=== PATIENT | female | born 2000 | race Caucasian/White ===

== ENCOUNTER 2022-01-05 12:47 | Emergency (ER) | payer BC, SELFPAY ==
--- OUTSIDE RECORDS SUMMARY | 2022-01-05 12:51 | XMS REPORT | Continuity of Care Document ---
:2000 Author Organization [facility] t Address [address] [place], [place] [address]solis Mack [address] [place] [id number] Care Team Providers Name Role Phone PCP, PATIENT DOES NOT HAVE A Primary Care Physician Unavaila ANNIE Martinez Attending Clinician Unavailable Only, Ang Db Test Attending Clinician Unavailable Mavee Houston Attending Clinician MAEVE NAJERA Attending Clinician Unavailable Akinpelu LIFT SUPERVISORVirginie Attending Clinician [phone] ALEX SERRA Attending Clinician Unavailable Alex Moore Attending Clinician [phone] Michelle Espinosa Attending Clinician JACKELINE PINK Attending Clinician Unavailable ZIA WARE Attending Clinician Unavailable MICHELLE GUARDADO Attending Clinician Unavailable Lai Jackson Attending Clinician Rola Sena Attending Clinician LAI CASILLAS Attending Clinician Unavailable JUAN C WINKLER Attending Clinician Unavailable 2, [facility] Attending Clinician Unavailable Annie Birmingham PA-C Attending Clinician ELISHA CRESPO Attending Clinician Unavailable Payers Payer Name Policy Type Policy Number Effective Date Expiration Date S ource Problems Condition Condition Condition Status Onset Resolution Last Treating Co mments Source Name Details Category Date Date Treatment Clinician Date No known No known Disease Unive rs active active ity of problems problems [facility] Allergies, Adverse Reactions, Alerts Allergy Allergy Status Severity Reaction(s) Onset Inactive Treating Comm ents Source Name Type Date Date Clinician NO KNOWN Drug Active Univers ALLERGIE Class [facility] [place] [facility] Social History Social Habit Start Date Stop Date Quantity Comments Source History SDOH University o f Alcohol Frequency [place] [facility] History SDOH University o f Alcohol Std [place] [facility] Drinks Branch History SDOH University o f Alcohol Binge [place] [facility] Exposure [facility] 2021-11-03 2021-11-13 [facility] (event) Branch Tobacco use and 2021-02-22 2021-02-22 Smokeless tobacco Un iversity of exposure 00:00:00 00:00:00 non-user [facility] Alcohol intake 2021-02-22 2021-02-22 Current drinker Unive rsity of 00:00:00 00:00:00 of alcohol [facility] (finding) [place] Alcohol Comment 2021-02-22 2021-02-22 3-5 weekly Universit y of 00:00:00 00:00:00 [facility] Sex Ass[birth year] At [birth year] Universit y of 00:00:00 00:00:00 [facility] Smoking Status Start Date Stop Date Source Never smoked tobacco [facility] Medications Ordered Filled Start Stop Current Ordering Indication Dosage Frequency Signature Comments Components Source Medication Medication Date Date Medication? Clinician (SIG) Name Name amoxicillin 2020-05- No [id number] 1{tbl} Take 1 Univers -clavulanat -02 13-21 tablet by it y of e 00:00: 05:59 mouth 2 [place] (AUGMENTIN) 00 :00 (two) Medical 875-125 mg times Branch per tablet daily for 10 days. amoxicillin 2020-05- No [id number] 1{tbl} Take 1 Univers -clavulanat -10 11-21 tablet by it y of e 00:00: 05:59 mouth 2 [place] (AUGMENTIN) 00 :00 (two) Medical 875-125 mg times Branch per tablet daily for 10 days. drospirenon 2020-05 Yes [id number] 1{tbl} Take 1 Univers e-ethinyl 0-20 tablet by ity o f estradioL 00:00: mouth [place] 3-0.03 mg 00 daily. Medical per tablet Branch drospirenon 2020-05 Yes [id number] 1{tbl} Take 1 Univers e-ethinyl 0-20 tablet by ity o f estradioL 00:00: mouth [place] 3-0.03 mg 00 daily. Medical per tablet Branch drospirenon 2020-05 Yes [id number] 1{tbl} Take 1 Univers e-ethinyl 0-20 tablet by ity o f estradioL 00:00: mouth [place] 3-0.03 mg 00 daily. Medical per tablet Branch drospirenon 2020-05 Yes [id number] 1{tbl} Take 1 Univers e-ethinyl 0-20 tablet by ity o f estradioL 00:00: mouth [place] 3-0.03 mg 00 daily. Medical per tablet Branch drospirenon 2020-05 Yes [id number] 1{tbl} Take 1 Univers e-ethinyl 0-20 tablet by ity o f estradioL 00:00: mouth [place] 3-0.03 mg 00 daily. Medical per tablet Branch drospirenon 2020-05 Yes [id number] 1{tbl} Take 1 Univers e-ethinyl 0-20 tablet by ity o f estradioL 00:00: mouth [place] 3-0.03 mg 00 daily. Medical per tablet Branch drospirenon 2020-05 Yes [id number] 1{tbl} Take 1 Univers e-ethinyl 0-20 tablet by ity o f estradioL 00:00: mouth [place] 3-0.03 mg 00 daily. Medical per tablet Branch drospirenon 2020-05 Yes [id number] 1{tbl} Take 1 Univers e-ethinyl 0-20 tablet by ity o f estradioL 00:00: mouth [place] 3-0.03 mg 00 daily. Medical per tablet Branch drospirenon 2020-05 Yes [id number] 1{tbl} Take 1 Univers e-ethinyl 0-20 tablet by ity o f estradioL 00:00: mouth [place] 3-0.03 mg 00 daily. Medical per tablet Branch drospirenon 1{tbl} Take 1 U nivers e-ethinyl 8-10 10-20 tablet by ity of estradioL 00:00: 00:00 mouth [place] 3-0.03 mg 00 :00 daily. Medical per tablet Branch Immunizations Ordered Filled Immunization Date Status Comments [facility] e Immunization Name Name HEPLISAV HEP B, 2020-12-21 Completed Universit y of ADULT 2 DOSE, IM 00:00:00 [facility] Branch HEPLISAV HEP B, 2020-12-21 Completed Universit y of ADULT 2 DOSE, IM 00:00:00 [facility] Branch HEPLISAV HEP B, 2020-12-21 Completed Universit y of ADULT 2 DOSE, IM 00:00:00 [facility] Branch HEPLISAV HEP B, 2020-12-21 Completed Universit y of ADULT 2 DOSE, IM 00:00:00 [facility] Branch HEPLISAV HEP B, 2020-12-21 Completed Universit y of ADULT 2 DOSE, IM 00:00:00 [facility] Branch HEPLISAV HEP B, 2020-12-21 Completed Universit y of ADULT 2 DOSE, IM 00:00:00 [facility] Branch HEPLISAV HEP B, 2020-12-21 Completed Universit y of ADULT 2 DOSE, IM 00:00:00 [facility] Branch HEPLISAV HEP B, 2020-12-21 Completed Universit y of ADULT 2 DOSE, IM 00:00:00 [facility] Branch HEPLISAV HEP B, 2020-12-21 Completed Universit y of ADULT 2 DOSE, IM 00:00:00 [facility] TDAP 2020-12-09 Completed University of 00:00:00 [facility] TDAP 2020-12-09 Completed University of 00:00:00 [facility] TDAP 2020-12-09 Completed University of 00:00:00 [facility] TDAP 2020-12-09 Completed University of 00:00:00 [facility] TDAP 2020-12-09 Completed University of 00:00:00 [facility] TDAP 2020-12-09 Completed University of 00:00:00 [facility] TDAP 2020-12-09 Completed University of 00:00:00 [facility] TDAP 2020-12-09 Completed University of 00:00:00 [facility] TDAP 2020-12-09 Completed University of 00:00:00 [facility] SARS-COV-2 COVID-19 2020-08-12 Completed Unive [facility] of 3Nod VACCINE 00:00:00 [place] [facility] Branch SARS-COV-2 COVID-19 2020-08-12 Completed Unive rsity of PFIZER VACCINE 00:00:00 [facility] Branch SARS-COV-2 COVID-19 2020-08-12 Completed Unive rsity of PFIZER VACCINE 00:00:00 [facility] Branch SARS-COV-2 COVID-19 2020-08-12 Completed Unive rsity of PFIZER VACCINE 00:00:00 [facility] Branch SARS-COV-2 COVID-19 2020-08-12 Completed Unive rsity of PFIZER VACCINE 00:00:00 [facility] Branch SARS-COV-2 COVID-19 2020-08-12 Completed Unive rsity of PFIZER VACCINE 00:00:00 [facility] Branch SARS-COV-2 COVID-19 2020-08-12 Completed Unive rsity of PFIZER VACCINE 00:00:00 [facility] Branch SARS-COV-2 COVID-19 2020-08-12 Completed Unive rsity of PFIZER VACCINE 00:00:00 [facility] Branch SARS-COV-2 COVID-19 2020-08-12 Completed Unive rsity of PFIZER VACCINE 00:00:00 [facility] Branch SARS-COV-2 COVID-19 2020-07-22 Completed Unive rsity of PFIZER VACCINE 00:00:00 [facility] Branch SARS-COV-2 COVID-19 2020-07-22 Completed Unive rsity of PFIZER VACCINE 00:00:00 [facility] Branch SARS-COV-2 COVID-19 2020-07-22 Completed Unive rsity of PFIZER VACCINE 00:00:00 [facility] Branch SARS-COV-2 COVID-19 2020-07-22 Completed Unive rsity of PFIZER VACCINE 00:00:00 [facility] Branch SARS-COV-2 COVID-19 2020-07-22 Completed Unive rsity of PFIZER VACCINE 00:00:00 [facility] Branch SARS-COV-2 COVID-19 2020-07-22 Completed Unive rsity of PFIZER VACCINE 00:00:00 [facility] Branch SARS-COV-2 COVID-19 2020-07-22 Completed Unive rsity of PFIZER VACCINE 00:00:00 [facility] Branch SARS-COV-2 COVID-19 2020-07-22 Completed Unive rsity of PFIZER VACCINE 00:00:00 [facility] SARS-COV-2 COVID-19 2020-07-22 Completed Unive rsity of PFIZER VACCINE 00:00:00 [facility] Vital Signs Vital Name Observation Time Observation Value Comments Source Systolic blood 2021-03-15 22:19:00 124 mm[Hg] Univer sity of pressure [facility] Diastolic blood 2021-03-15 22:19:00 87 mm[Hg] Unive rsity of pressure [facility] Heart rate 2021-03-15 22:19:00 87 /min Universi ty of [facility] Body temperature 2021-03-15 22:19:00 36.44 Amanda Univ ersity of [facility] Respiratory rate 2021-03-15 22:19:00 17 /min Univ ersity of [facility] Body height 2021-03-15 22:19:00 165.1 cm Universi ty of [facility] Body weight 2021-03-15 22:19:00 85.276 kg Universi ty of [facility] BMI 2021-03-15 22:19:00 31.28 kg/m2 Universi ty of [facility] Oxygen saturation in 2021-03-15 22:19:00 100 /min University of Arterial blood by [facility] Pulse oximetry Branch BMI 2021-02-22 19:38:00 30.85 kg/m2 Universi ty of [facility] Oxygen saturation in 2021-02-22 19:38:00 98 /min University of Arterial blood by [facility] Pulse oximetry Branch Systolic blood 2021-02-22 19:38:00 134 mm[Hg] Univer sity of pressure [facility] Diastolic blood 2021-02-22 19:38:00 82 mm[Hg] Unive rsity of pressure [facility] Heart rate 2021-02-22 19:38:00 85 /min Universi ty of [facility] Body temperature 2021-02-22 19:38:00 36.78 Amanda Univ ersity of [facility] Branch Respiratory rate 2021-02-22 19:38:00 19 /min Univ ersity of [facility] Branch Body height 2021-02-22 19:38:00 165.1 cm Universi ty of [facility] Body weight 2021-02-22 19:38:00 84.097 kg Universi ty [facility] [place] [facility] Procedures Procedure Date / Time Performed Performing Clinician Sourc e POCT SARS-COV-2 2021-11-13 00:00:00 [facility]BINAX NOW[facility] Medical Bran ch HEPATITIS B 2021-03-29 15:31:00 Geo, [facility] o f [place] SURFACE$ANTIBODY [facility] (QUANT)-Q Encounters Start End Encounter Admission Attending Care Care Encounter Source Date/Time Date/Time Type Type Clinicians Facility Department ID 2022-02-28 2022-02-28 Outpatient [facility] [id number] Univers 15:45:00 15:45:00 SWINK [id number] [facility] 2022-02-26 2022-02-26 Outpatient R [facility] [id number] Univers 15:30:00 15:30:00 ANNIE [id number] [facility] 2022-02-20 2022-02-20 Outpatient [facility] [id number] Univers 15:00:00 15:00:00 ANNIE [id number] [facility] 2021-11-13 2021-11-13 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 [facility] [id number] Jose as NAHID?BLEA [phone] [place] dical [address] MEDICAL OFFICE BUILDING 2021-11-13 2021-11-13 Outpatient R [facility] [id number] Univers 10:30:00 10:30:00 [id number] [facility] 2021-11-13 2021-11-13 Outpatient R [facility] [id number] Univers 10:30:00 10:30:00 [facility] o f [facility] 2021-11-09 2021-11-09 Student ACACIA Mcclellan [id number] Univers 00:00:00 00:00:00 Health Virginie STUDENT [id number] i ty of [facility] [facility] 4.2.7.2.686 [place] [id number] [facility] [address] 2021-10-26 2021-10-26 Outpatient R [facility] [id number] Univers 13:41:00 23:59:00 YARED, ity of [facility] 2021-10-26 2021-10-26 [facility] [id number] Univers 13:41:00 23:59:00 Encounter yared, PRIMARY [id number] ity [facility] [id number] [place] [id number] [facility] 036 Branch 2021-04-03 2021-04-03 Student ACACIA Guardado [id number] Univers 00:00:00 00:00:00 Health Mini STUDENT [id number] it y of [place] [id number] [place] [id number] [facility] [address] 2021-03-29 2021-03-29 Outpatient R [facility] [id number] Univers 14:00:00 14:00:00 [id number] ity [facility] 2021-03-29 2021-03-29 [facility] [id number] Univers 14:00:00 14:00:00 [facility] 2021-03-29 2021-03-29 [facility] [id number] Univers 08:00:00 08:00:00 HANAN ity [facility] 2021-03-29 2021-03-29 Orders ESTRELLA Guardado [id number] Univers 00:00:00 00:00:00 Only Mini KELSIE [id number] it y of [facility] [id number] Jose as [phone] [facility] 009 Branch 2021-03-23 2021-03-23 Outpatient R GEO [facility] [id number] Univers 13:00:00 13:55:41 MINI ity [facility] 2021-03-23 2021-03-23 Student ACACIA Guardado [id number] Univers 08:20:28 13:55:41 Health Mini STUDENT [id number] it y of [place] 4.2.7.2.[place] [id number] [address] 2021-03-23 2021-03-23 Outpatient R GEO [facility] [id number] Univers 13:00:00 13:00:00 MINI [id number] ity [facility] 2021-03-15 2021-03-15 Urgent Lai Casillas [facility] [id number] Univers 16:14:43 16:34:43 Care Rola Horn [facility] [id number] ity [facility] [id number] Jose as NAHID?BLEA [id number] [facility] [address] MEDICAL OFFICE BUILDING 2021-03-15 2021-03-15 Outpatient R [facility] [id number] Univers 16:20:00 16:20:00 [id number] ity [facility] 2021-03-15 2021-03-15 Outpatient R TIFFANY [facility] [id number] Univers 16:20:00 16:20:00 LAI [facility] 2021-02-23 2021-02-23 Outpatient R JUAN C WINKLER [facility] [id number] Univers 14:00:00 14:00:00 [id number] [facility] 2021-02-22 2021-02-22 Interior Design Professor 2, Adc Lab [facility] 1.2.840.114 [id number] Univers 15:26:24 15:41:24 Visit Annie Birmingham [id number] ity [facility] [id number] [place] Ayoubesslea [id number] [place] jennifer rivero [address] Building 2021-02-22 2021-02-22 Outpatient R DONALD [facility] [id number] Univers 14:30:00 15:23:36 [facility] 2021-02-22 2021-02-22 [facility] [id number] Univers 14:27:28 14:57:28 Visit Annie Garibay [id number] i ty [place] [id number] Isidoro Villar [id number] Il dical nal [facility] Branch [facility] 2021-02-22 2021-02-22 [facility]patient [facility] [id number] Univers 14:30:00 14:30:00 ANNIE [id number] [facility] 2021-01-17 2021-01-17 [facility] [id number] Univers 13:00:00 13:00:00 ELISHA [id number] [facility] 2021-01-17 2021-01-17 Outpatient [facility] [id number] Univers 13:00:00 13:00:00 ELISHA [facility] 2021-01-04 2021-01-04 [facility] [id number] Univers 09:30:00 09:30:00 [facility] [id number] [facility] 2021-01-04 2021-01-04 Outpatient [facility] [id number] Univers 09:30:00 09:30:00 [facility] 2020-12-21 2020-12-21 Outpatient Guzman [facility] [id number] Univers 08:15:00 08:15:00 ZIA [facility] Results Test Description Test Time Test Comments Results Result Comments Source POCT SARS-COV-2 ANTIGEN (BINAX NOW) 2021-11-13 15:32:00 Test Item Value Reference Range Interpretation Comme nts POCT SARS-COV-2 ANTIGEN (test Not Detected Not Detected code = 5076) On board controls acceptable Yes with C Line (test code = 3574) RAQUEL (test code = RAQUEL) accurate development and interpretation of all internal controls [facility] SURFACE$ANTIBODY (QUANT)-Q 2021-03-30 12:00:00 Test Item Value Reference Range Interpretation Comments HEPATITIS B >1000 See_Comment Patient has SURFACE$ANTIBODY immunity to (QUANT)-Q (test hepatitis B virus. code = 5193-8) For additiona l information, please refer tohttp://educat ion .GameOn. com/faq/GDS511( Thi s link is being provided for informational/e elli ational purpose s only). [Automat ed message] The system which generated this result transmit roger reference range : > OR = 10 mIU/mL. The reference range was not u sed to interpret th is result as normal/abnormal . RAQUEL (test code = PERFORMED BY [facility] RAQUEL) [facility] [place]; [address] [place] [id number]; ANISH RAMAN MD [facility]
--- NOTE | 2022-01-05 13:51 | RAD REPORT ---
EXAM DESCRIPTION: CT - Head Brain Wo Cont - 01/05/2022 1:45 pm CLINICAL HISTORY: headache Headache, drowsiness COMPARISON: No comparisons TECHNIQUE: All CT scans are performed using dose optimization technique as appropriate and may inclu de automated exposure control or mA/KV adjustment according to patient size. FINDINGS: No intracranial hemorrhage, hydrocephalus or extra-axial fluid collection.No areas of brai n edema or evidence of midline shift. The paranasal sinuses and mastoids are clear. The calvarium is intact. IMPRESSION: No acute intracranial abnormality.
[2022-01-05 16:56] LABS: Urine Blood 2+ (Negative); Urine Glucose Negative (Negative); Urine Protein Negative (Negative); Urine Specific Gravity 1.025 (1.005-1.030)
--- NOTE | 2022-01-05 17:22 | ER ---
Nurse's Notes [facility] Name: Rock Melvin Age: 21 yrs Sex: Female : 2000 Arrival Date: 01/05/2022 Time: 12:49 Bed 9 Private MD: Diagnosis: Other visual disturbances;Headache;Paresthesia of skin Presentation: 01/05 13:21 Chief complaint: Patient states: I was at my desk at 1145 this morning and I started bm7 having a headache and I felt disoriented and the left side of my body went numb and I couldn't type for a minute. Coronavirus screen: At this time, the client does not indicate any symptoms associated with coronavirus-19. Ebola Screen: No symptoms or risks identified at this time. Initial Sepsis Screen: Does the patient meet any 2 criteria? No. Patient's initial sepsis screen is negative. Does the patient have a suspected source of infection? No. Patient's initial sepsis screen is negative. Risk Assessment: Do you want to hurt yourself or someone else? Patient reports no desire to harm self or others. Onset of symptoms was January 05, 2022 at 11:45. 13:21 Method Of Arrival: Ambulatory 7 13:21 Acuity: ESTRELLA 3 bm7 Triage Assessment: 13:22 Headache History: The patient has had previous headaches and this one is different than bm7 previous episodes, and this one is more severe than previous episodes. General: Appears in no apparent distress. comfortable, Behavior is calm, cooperative, appropriate for age. Pain: Denies pain. Pain: Pain currently is 0 out of 10 on a pain scale. Pain began suddenly, Also complains of inability to work. EENT: No deficits noted. No signs and/or symptoms were reported regarding the EENT system. 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 Gait is steady, Speech is slurred, Facial symmetry appears normal. Cardiovascular: No deficits noted. Chest pain is denied. Respiratory: No deficits noted. GI: No deficits noted. No signs and/or symptoms were reported involving the gastrointestinal system. : No deficits noted. No signs and/or symptoms were reported regarding the genitourinary system. Derm: No deficits noted. No signs and/or symptoms reported regarding the dermatologic system. Musculoskeletal: No deficits noted. No signs and/or symptoms reported regarding the musculoskeletal system. SUEDE BRUSHER: 13:19 LMP 12/17/2021 bm7 Historical: - Allergies: 13:22 No Known Allergies; bm7 - Home Meds: 13:22 control [Active]; bm7 - PMHx: 13:22 None; bm7 - PSHx: 13:22 None; bm7 - Immunization history:: Adult Immunizations up to date, Client reports receiving the 2nd dose of the Covid vaccine, Client reports receiving the 1st dose of the Covid vaccine. - Social history:: Smoking status: Patient denies any tobacco usage or history of. Screenin:39 Abuse screen: Denies threats or abuse. Denies injuries from another. Nutritional ss screening: No deficits noted. Tuberculosis screening: Never had TB. Fall Risk None identified. Assessment: 17:37 General: Appears in no apparent distress. comfortable, Behavior is calm, cooperative. ss Neuro: Level of Consciousness is awake, alert, obeys commands, Oriented to person, place, time, situation. Cardiovascular: Capillary refill < 3 seconds is brisk in bilateral fingers. Respiratory: Airway is patent Respiratory effort is even, unlabored, Respiratory pattern is regular, symmetrical. Derm: Skin is intact, is healthy with good turgor, Skin is dry, Skin is pink, warm \\T\\ dry. normal. Vital Signs: 13:19 BP 157 / 90; Pulse 80; Resp 16; Temp 98.3(O); Pulse Ox 100% on R/A; Weight 83.91 kg bm7 (R); Height 5 ft. 5 in. (165.10 cm); Pain 0/10; 13:19 Body Mass Index 30.79 (83.91 kg, 165.10 cm) bm7 ED Course: 12:49 Patient arrived in ED. as 13:19 Arm band placed on right wrist. bm7 13:22 Triage completed. bm7 13:46 CT Head Brain wo Cont In Process Unspecified. EDMS 13:49 Dennise Moreira FNP-C is [facility]. snw 13:49 Fritz Diaz MD is Attending Physician. snw 16:54 Urine Microscopic Only Sent. zm 16:57 SARS-COV-2 RT PCR (Document "Date of Onset" if Symptomatic) Sent. zm 17:20 Eliseo Vazquez MD is Referral Physician. sn 17:37 Arleth Siddiqi, RN is Primary Nurse. 17:37 No provider procedures requiring assistance completed. 17:39 Patient has correct armband on for positive identification. Bed in low position. Call ss light in reach. 17:39 Patient did not have IV access during this emergency room visit. ss Administered Medications: No medications were administered Medication: 17:37 VIS not applicable for this client. ss Outcome: 17:21 Discharge ordered by . snw 17:37 Discharged to home ambulatory. 17:37 Condition: good 17:37 Discharge instructions given to patient, family, Instructed on discharge instructions, follow up and referral plans. medication usage, control, Demonstrated understanding of instructions, follow-up care, Prescriptions given X 2. 17:39 Patient left the ED. ss Signatures: Dispatcher [employer] EDMS Dennise Moreira, ACCOUNT RECEIVABLE ASSOCIATE-C ACCOUNT RECEIVABLE ASSOCIATE-Kristin Morgan as Arleth Siddiqi, RN RN Maeve Knight RN RN 7 Laurel Hardin
--- NOTE | 2022-01-05 17:22 | EDPHYS ---
Physician Documentation [facility] Name: Rock Melvin Age: 21 yrs Sex: Female : 2000 Arrival Date: 01/05/2022 Time: 12:49 Bed 9 Private MD: ED Physician Fritz Diaz HPI: 01/05 17:05 This 21 yrs old Female presents to ER via Ambulatory with complaints of Numbness, snw Headache, Blurred Vision. 17:05 Onset: The symptoms/episode began/occurred suddenly. Associated signs and symptoms: snw Pertinent positives: headache. The patient has experienced a previous episode. The patient has not recently seen a physician. 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 - Social history:: Smoking status: Patient denies any tobacco usage or history of. ROS: 16:59 Constitutional: Negative for fever, chills, and weight loss, Eyes: Negative for injury, snw pain, redness, and discharge, ENT: Negative for injury, pain, and discharge, Neck: Negative for injury, pain, and swelling, Cardiovascular: Negative for chest pain, palpitations, and edema, Respiratory: Negative for shortness of breath, cough, wheezing, and pleuritic chest pain, Abdomen/GI: Negative for abdominal pain, nausea, vomiting, diarrhea, and constipation, Back: Negative for injury and pain, : Negative for injury, bleeding, discharge, and swelling, MS/Extremity: Negative for injury and deformity, Skin: Negative for injury, rash, and discoloration, Psych: Negative for depression, anxiety, suicide ideation, homicidal ideation, and hallucinations. 16:59 Neuro: Positive for Pt was sitting at her computer and noted black dots in her vision followed by numbness and tingling down right arm. This persisted x 20 min and then resolved completely. Pt states then she had a bilateral frontal headache. This same situation has happened once before.. Exam: 16:59 Constitutional: This is a well developed, well nourished patient who is awake, alert, snw and in no acute distress. Head/Face: Normocephalic, atraumatic. Eyes: Pupils equal round and reactive to light, extra-ocular motions intact. Lids and lashes normal. Conjunctiva and sclera are non-icteric and not injected. Cornea within normal limits. Periorbital areas with no swelling, redness, or edema. ENT: Nares patent. No nasal discharge, no septal abnormalities noted. Tympanic membranes are normal and external auditory canals are clear. Oropharynx with no redness, swelling, or masses, exudates, or evidence of obstruction, uvula midline. Mucous membranes moist. Neck: Trachea midline, no thyromegaly or masses palpated, and no cervical lymphadenopathy. Supple, full range of motion without nuchal rigidity, or vertebral point tenderness. No Meningismus. Chest/axilla: Normal chest wall appearance and motion. Nontender with no deformity. No lesions are appreciated. Cardiovascular: Regular rate and rhythm with a normal S1 and S2. No gallops, murmurs, or rubs. Normal PMI, no JVD. No pulse deficits. Respiratory: Lungs have equal breath sounds bilaterally, clear to auscultation and percussion. No rales, rhonchi or wheezes noted. No increased work of breathing, no retractions or nasal flaring. Abdomen/GI: Soft, non-tender, with normal bowel sounds. No distension or tympany. No guarding or rebound. No evidence of tenderness throughout. Back: No spinal tenderness. No costovertebral tenderness. Full range of motion. Skin: Warm, dry with normal turgor. Normal color with no rashes, no lesions, and no evidence of cellulitis. MS/ Extremity: Pulses equal, no cyanosis. Neurovascular intact. Full, normal range of motion. Neuro: Awake and alert, GCS 15, oriented to person, place, time, and situation. Cranial nerves II-XII grossly intact. Motor strength 5/5 in all extremities. Sensory grossly intact. Cerebellar exam normal. Normal gait. Psych: Awake, alert, with orientation to person, place and time. Behavior, mood, and affect are within normal limits. Vital Signs: 13:19 BP 157 / 90; Pulse 80; Resp 16; Temp 98.3(O); Pulse Ox 100% on R/A; Weight 83.91 kg bm7 (R); Height 5 ft. 5 in. (165.10 cm); Pain 0/10; 13:19 Body Mass Index 30.79 (83.91 kg, 165.10 cm) bm7 MDM: 13:59 Patient medically screened. snw 17:08 Data reviewed: vital signs, nurses notes. Data interpreted: Pulse oximetry: on room air snw is 100 %. Interpretation: normal. Counseling: I had a detailed discussion with the patient and/or guardian regarding: the historical points, exam findings, and any diagnostic results supporting the discharge/admit diagnosis, the presence of at least one elevated blood pressure reading (>120/80) during this emergency department visit, lab results, radiology results, the need for outpatient follow up. 01/05 14:17 Order name: SARS-COV-2 RT PCR (Document "Date of Onset" if Symptomatic) snw 01/05 14:17 Order name: Urine Microscopic Only snw 01/05 13:32 Order name: CT Head Brain wo Cont; Complete Time: 13:59 rn 01/05 14:17 Order name: EKG; Complete Time: 14:18 snw 01/05 14:17 Order name: Urine Dipstick-Ancillary (obtain specimen); Complete Time: 16:54 snw 01/05 16:57 Order name: Urine Dipstick-Ancillary; Complete Time: 16:57 EDMS 01/05 14:17 Order name: Urine Test (obtain specimen); Complete Time: 16:54 snw EC:17 Rate is 77 beats/min. Rhythm is regular. QRS [place] is Normal. [place] interval is normal. QRS snw interval is normal. QT interval is normal. Clinical impression: Sinus arrythmia. Administered Medications: No medications were administered Disposition: 18:47 Co-signature as Attending Physician, Fritz Diaz MD. rn Disposition Summary: 01/05/22 17:21 Discharge Ordered Location: Home snw Condition: Stable snw Diagnosis - Other visual disturbances snw - Headache snw - Paresthesia of skin snw Followup: snw - With: Emergency Department - When: As needed - Reason: Worsening of condition Followup: snw - With: Eliseo Vazquez MD - When: 1 week - Reason: Recheck today's complaints, Continuance of care Discharge Instructions: - Discharge Summary Sheet snw - Blurred Vision, Adult snw - Migraine Headache snw - Paresthesia snw - Rehydration, Adult snw Forms: - Medication Reconciliation Form snw - Thank You Letter snw - Antibiotic Education snw - Prescription Opioid Use snw - Work release form snw Prescriptions: - orphenadrine citrate 100 mg Oral Tablet Sustained Release - take 1 tablet by ORAL route 2 times per day As needed; 20 tablet; Refills: 0, snw Product Selection Permitted - promethazine 25 mg Oral Tablet - take 1 tablet by ORAL route every 6 hours As needed; 20 tablet; Refills: 0, snw Product Selection Permitted Signatures: Dispatcher [employer] EDDennise Giang FNP-C LEARNING DISABILITIES TEACHER-Csnw Fritz Diaz MD MD rn McCarthy, Brittany, RN RN bm7
[2022-01-05 18:01] LABS: Urine Bacteria 20-50 /HPF (<20)
[2022-01-05 18:45] VITALS: BP 157/90; TEMP 98.3; O2SAT 100
--- NOTE | 2022-01-06 09:21 | EKG ---
Test Date: 2022-01-05 Test Time: 17:11:09 Safety Specialist: ANGIE MEASUREMENT RESULTS: Intervals: Rate: 77 WA: 134 QRSD: 82 QT: 376 QTc: 425 [place]: P: 29 WA: 134 QRS: 43 T: 9 INTERPRETIVE STATEMENTS: Normal sinus rhythm with sinus arrhythmia Normal ECG No previous ECG available for comparison Electronically Signed On 01-06-22 09:18:41 CDT by Emil Garcia
== END 2022-01-05 17:39 | disposition home or self-care (01) ==
LOC: ER 12:47
DX: R51.9 Headache, unspecified (principal); H53.8 Other visual disturbances; R20.2 Paresthesia of skin; Z20.822 Contact with and (suspected) exposure to COVID-19
CPT/HCPCS: 93005; 87088; 87086; 70450; 99283; U0003; 81003; 81015